=== PATIENT | male | born 1960 | race Caucasian/White ===

== ENCOUNTER → 2019-02-20 | Outpatient (CLI) | payer OTHER ==
--- NOTE | 2019-02-23 19:30 | PF ---
[address] [address] PULMONARY FUNCTION REPORT Name: CINTHIA EDWARDS Room: [facility].#: [id number] Admission: 02/20/19 Attend Phys: Homer Lopez MD Discharge: Date of : 60 Report #: [id number] THIS REPORT FOR: //name// CC: Homer Lopez [facility] unknown DATE OF SERVICE: 02/20/2019 SPIROMETRY REPORT FEV1 to FVC ratio is 68% of predicted. FEV1 is 3.23 liters, 94% of predicted. FVC is 4.75 liters, 105% of predicted. In summary, spirometry suggests mild obstructive lung defect (GOLD grade 1). There is no significant postbronchodilator change. <ELECTRONICALLY SIGNED> By: Sherrie Cabezas MD 02/23/19 1930 [id number] Cabezas MD /nt
== END ==
LOC: M.PUL 02-19 10:00
DX: J98.4 Other disorders of lung (principal); J43.9 Emphysema, unspecified